=== PATIENT | female | born 1955 | race Caucasian/White ===

== ENCOUNTER → 2017-07-29 08:16 | Outpatient (CLI) | payer MEDICARE, SELFPAY ==
[2017-07-29 09:06] LABS: Basophils % 0.6 % (0.1-2.0); Eosinophils # 0.1 K/mm3 (0.0-0.4); Eosinophils % 2.7 % (0.1-12.0); Hematocrit 38.5 % (37.0-47.0); Hemoglobin 12.8 g/dL (12.2-16.2); Lymphocytes # 1.3 K/mm3 (0.7-4.5); Lymphocytes % 33.7 K/mm3 (10-50); Mean Corpuscular HGB Conc 33.3 g/dL (31.8-35.4); Mean Corpuscular Hemoglobin 29.9 pg (27.0-31.2); Mean Corpuscular Volume 89.9 fl (81-99); Mean Platelet Volume 7.7 fl (7.4-10.4); Monocytes # 0.2 K/mm3 (0.1-1.0); Monocytes % 4.7 % (1.7-9.3); Neutrophils # 2.2 K/mm3 (1.8-7.8); Neutrophils % 58.3 % (37.0-80.0); Platelet Count 162 K/mm3 (142-424); Red Blood Count 4.28 M/mm3 (4.20-5.40); Red Cell Distribution Width 12.3 % (11.5-17.5); White Blood Count 3.8 K/mm3 (4.8-10.8)
[2017-07-29 10:28] LABS: Hemoglobin A1C 5.5 % (0.0-7.0)
[2017-07-29 11:02] LABS: Alanine Aminotransferase 26 U/L (12-78); Albumin Level 3.9 gm/dL (3.4-5.0); Albumin/Globulin Ratio 1.8 (1.1-1.8); Alkaline Phosphatase 65 U/L (46-116); Anion Gap 11.1 mEq/L (5-15); Aspartate Amino Transferase 34 U/L (15-37); Bilirubin,Total 0.4 mg/dL (0.2-1.0); Blood Urea Nitrogen 9 mg/dL (7-18); Carbon Dioxide 34 mmol/L (21.0-32.0); Chloride 107 mmol/L (98-107); Chol/HDL Ratio 1.8 (1-3.5); Cholesterol 210 mg/dL (140-200); Estimated Glomerular Filt Rate 72 ml/min (>60); GFR (African American) 88 ML/MIN (>60); Globulin 2.2 gm/dl (1.3-3.2); Glucose 95 mg/dL (74-106); HDL Cholesterol 116 mg/dL (29-89); LDL Cholesterol 90 mg/dL (0-130); Potassium 4.1 mmoL/L (3.5-5.1); Sodium 148 mmol/L (136-145); Thyroid Stimulating Hormone 1.93 uIU/ml (0.358-3.740); Total Protein,Serum 6.1 gm/dL (6.4-8.2); Triglycerides 19 mg/dL (30-200); VLDL Cholesterol 4 mg/dL (0-40)
[2017-08-01 17:11] LABS: Vitamin D 25 Hydroxy 52.9 ng/mL (30.0-100.0)
== END ==
PROVIDERS: Psychiatry & Neurology Psychiatry; PCP Family Medicine; Visit Provider Thoracic Surgery (Cardiothoracic Vascular Surgery)
DX: F41.1 Generalized anxiety disorder (principal); Z79.899 Other long term (current) drug therapy
CPT/HCPCS: 36415; 80053; 80061; 82652; 83036; 84443; 85025

== ENCOUNTER 2017-09-29 12:12 | Day surgery (SDC) | payer MEDICARE, SELFPAY ==
[2017-09-26 14:45] VITALS: BMI 23.1
[2017-09-29] VITALS (7 sets, daily range): BP systolic 110–135; BP diastolic 55–75; PULSE 54–66; RESP 16–20; TEMP 36.6–36.8; O2SAT 100
[2017-09-29 12:38] LABS: POC Glucose,Bedside 86 mg/dL (70-110)
--- NOTE | 2017-09-29 13:00 | P.PN_ITS ---
[facility] Anesthesia Checklist - Structural Data Planned Operative Procedure/s: colonoscopy Consent for Planned Operative Procedure(s) Verified: Yes Verified Documents: Surgical Consent - Airway Assessment C-Spine Mobility Assessed: Yes TMJ Mobility Assessed: Yes Dentition: Good Dentition - Neurological Assessment Level of Consciousness: Awake, Alert - Anesthesia Plan Anesthesia Risk discussed: Yes Anesthesia Plan: Verified ASA Class: II Anesthesia Type: MAC [facility] Anesthesia HX Medical History: Denies:: Diabetes Mellitus Type 1, Diabetes Mellitus Type 2 (hypoglycemia), Internal Pacemaker, Lung Disease, Seizures Other Surgeries: No: Pacemaker
--- NOTE | 2017-09-29 13:23 | HMH.PROC ---
[facility] Procedure Note Procedure Note:: Colonoscopy Procedure Report: Colonoscopy Endoscopist: Angus Knapp II, MD Referring physician: Kamila Patton M.D. Date of Procedure: September 29, 2017 Equipment: Olympus 180 variable stiffness pediatric colonoscope Sedation: MAC sedation Indication: Mrs. Rodriguez is a 62-year-old female who is here for initial screening colonoscopy. She does state that she has had some bowel irregularity since her bariatric surgery/gastric or intestinal bypass surgery 37 years ago. She reports no abdominal pain, weight loss, change in her bowel habits or rectal bleeding. She reports no family history of colon cancer. Procedure: Prior to the procedure, a history and physical exam was performed, and patient's medications and allergies were reviewed. The risks, benefits and alternatives of the sedation and procedure were discussed with the patient. All questions were answered and informed consent was obtained. The patient was brought to the procedure room. Patient identification and proposed procedure were verified by the physician and the nurse. The patient was placed in a left lateral decubitus position and the scope was passed under direct vision. Throughout the procedure, the patient's blood pressure, pulse, and oxygen saturations were monitored continuously. The colonoscopy was accomplished without difficulty. The patient tolerated the procedure well. Findings: On digital rectal examination there was normal rectal tone. There were no external hemorrhoids. The colonoscope was introduced through the anal canal to the rectum and advanced to the cecum. The ileocecal valve and appendiceal orifice were identified. The scope was advanced a short distance into the ileum which appeared grossly normal. The scope was then withdrawn into the colon. The cecum, ascending, transverse, descending, sigmoid and rectum were grossly normal. There were no mucosal abnormalities identified. Upon retroflexion within the rectum there were grade 1 internal hemorrhoids. Impression: 1. Normal colonoscopy with intubation of the terminal ileum 2. Grade 1 internal hemorrhoids Plan: The patient will not require screening/surveillance colonoscopy again for 10 years by ACS guidelines. I would encourage fiber supplementation on a long-term daily maintenance basis.
== END 2017-09-29 14:22 | disposition home or self-care (01) ==
PROVIDERS: PCP Family Medicine; Visit Provider Internal Medicine Gastroenterology
PROC: 0DJD8ZZ Inspection of Lower Intestinal Tract, Via Natural or Artificial Opening Endoscopic (ICD-10-PCS; CPT 45378; principal; 2017-09-29 13:30)
DX: Z12.11 Encounter for screening for malignant neoplasm of colon (principal); K64.0 First degree hemorrhoids
CPT/HCPCS: G0121; 82962